=== PATIENT | male | born 1990 | race Caucasian/White ===

== ENCOUNTER → 2023-09-10 06:58 | Outpatient (REF) | payer OTHER, SELFPAY | LOC: MRI 3T 06:58 | PROVIDERS: ATTENDING PHYSICIAN Orthopaedic Surgery Orthopaedic Surgery of the Spine; FAMILY PHYSICIAN Family Medicine | DX: M54.12 Radiculopathy, cervical region (principal) | CPT/HCPCS: 72141 ==

== ENCOUNTER → 2023-10-03 06:40 | Outpatient (REF) | payer OTHER, SELFPAY | LOC: MRI 3T 06:40 | PROVIDERS: ATTENDING PHYSICIAN Physician Assistant Surgical; FAMILY PHYSICIAN Family Medicine | DX: M54.12 Radiculopathy, cervical region (principal); G95.0 Syringomyelia and syringobulbia | CPT/HCPCS: 72146 ==